=== PATIENT | female | born 1950 | race Caucasian/White ===

== ENCOUNTER 2017-07-29 08:57 | Emergency (ER) | payer MEDICARE, MEDICAID ==
[~2017-07-29] VITALS: Ht 157.5 cm; Wt 72.5 kg
[2017-07-29 08:59] VITALS: Ht 157.5 cm; Wt 72.5 kg
[2017-07-29] MEDS ORDERED: KETOROLAC 30 MG INJ IM STA (09:47)
[2017-07-29] MEDS ORDERED: NAPR-260 PO (10:20)
[2017-07-29] MEDS ORDERED: TRAM50TA2 PO (10:20)
--- NOTE | 2017-07-29 10:26 | ERD ---
ER Documentation Chief Complaint Date/Time DATE: 07/29/17 TIME: 10:23 Chief Complaint right leg pain x 6 years HPI This is a 67-year-old female who presents the emergency department today complaining of right leg pain for the past 5-6 months. Patient states it is been worse the past few days. States that she had an x-ray on her back a month ago. States she is unsure of the results. States that she has pain also in her Achilles. States that she has done physical therapy in the past but the exercises " made it worse". She would like something for the pain and had a shot back in [facility] once for the pain and that helped improve her symptoms. Denies any fevers or chills, shortness of breath or chest pain ROS All systems reviewed and are negative except as per history of present illness. Medications Home Meds Active Scripts Naproxen* (Naprosyn*) 500 Mg Tablet, 500 MG PO BID Y for PAIN AND/OR INFLAMMATION, #30 TAB Prov:NANCY COURTNEY PA-C 07/29/17 Tramadol HCl (Tramadol HCl) 50 Mg Tablet, 50 MG PO Q4 Y for PAIN, #20 TAB Prov:NANCY COURTNEY PA-C 07/29/17 Allergies Allergies: Coded Allergies: No Known Allergy (Unverified , 03/08/15) PMhx/Soc History of Surgery: Yes (abdominal surgery ; left leg surgery) Anesthesia Reaction: No Hx Neurological Disorder: No Hx Respiratory Disorders: No Hx Cardiac Disorders: No Hx Psychiatric Problems: No Hx Miscellaneous Medical Probl: No Hx Alcohol Use: No Hx Substance Use: No Hx Tobacco Use: No Physical Exam Vitals Vital Signs Date Time Temp Pulse Resp B/P Pulse Ox O2 Delivery O2 Flow Rate FiO2 07/29/17 08:59 98.0 80 18 132/63 99 Physical Exam Const: NAD Head: Atraumatic Eyes: Normal Conjunctiva ENT: Normal External Ears, Nose and Mouth. Neck: Full range of motion..~ No meningismus. Resp: Clear to auscultation bilaterally Cardio: Regular rate and rhythm, no murmurs Abd: Soft, non tender, non distended. Normal bowel sounds Skin: No petechiae or rashes Back: No midline or flank tenderness Ext: No cyanosis, or edema no gastroc tenderness. No erythema or warmth. Tenderness at Achilles tendon. Negative Mike test. Neur: Awake and alert Psych: Normal Mood and Affect Results 24 hrs Current Medications Medications (Trade) Dose Ordered Sig/Amena Route PRN Reason Start Time Stop Time Status Last Admin Dose Admin Ketorolac Tromethamine (Toradol) 30 mg ONCE STAT IM 07/29/17 09:47 07/29/17 09:48 DC Procedures/MDM This is a 67 -year-old female who presents the emergency department today complaining of right leg pain for the past 5-6 months. Patient did bring paperwork with her of her x-rays that showed moderate diffuse degenerative disc disease and spondylosis at L5 and S1. Patient complained of pain down her entire leg and this is likely related to her degenerative disc disease and radicular symptoms and sciatic related pain. Patient denies any back pain at this time. Patient was wearing high heels and I have explained to her that that is not helping the pain in her Achilles. Patient understood. She is instructed to wear more supportive shoes. Had no gastroc tenderness and denies any shortness of breath, prolonged travel. I did offer to obtain a Doppler ultrasound however patient has declined at this time. I do have low suspicion for DVT. Patient is afebrile and otherwise well-appearing. There is no evidence of cellulitis. Low suspicion for sepsis or severe acute bacterial infection. Patient was given a Toradol injection here in the emergency department. She will be given a short course of tramadol, Naprosyn for home. At this time the patient is stable for discharge and outpatient management. Patient should follow up with their PCP in the next 1-2 days. They may return to the emergency department sooner for any persistent or worsening of symptoms. Patient understood and agreed with the plan. Departure Diagnosis: Primary Impression: Pain of right leg Condition: Fair Patient Instructions: Back Pain W/ Sciatica Referrals: your PCP Additional Instructions: Llame al doctor MAANA y azul sridhar KRIS PARA DENTRO DE 1-2 ERICKSON.Dgale a la secretaria que nosotros le instruimos hacer esta kris.Avise o llame si garcia condicin se empeora antes de la kris. Regresa aqui si peor o no mejor. Take Tramadol for severe pain otherwise take Naprosyn or Tylenol or Motrin. Follow-up with your primary care doctor for referral to account services specialist and physical therapy NANCY COURTNEY PA-C Jul 29, 2017 10:26
[2017-07-29 11:41] VITALS: BP 134/66; PULSE 79; RESP 18; TEMP 98
--- NOTE | 2017-07-31 09:57 | EN ---
Date/Time of Note Date/Time of Note DATE: 07/31/17 TIME: 09:55 ER Progress Note I placed a call to the patient today to follow-up to see how she was doing after her visit here and the number that was on file was incorrect and I therefore called the next of kin, her son. The son indicated he would be able to speak to her on a three-way phone call. Patient indicated that her pain was much better in her leg. I did explain to her that she may return for any persistent or worsening of symptoms. Patient understood and thanked me for calling. NANCY COURTNEY PA-C Jul 31, 2017 09:57
== END 2017-07-29 11:42 | disposition home or self-care (01) ==
LOC: FTE 08:57
DX: M79.604 Pain in right leg (principal)
CPT/HCPCS: 96372; 99284; J1885